=== PATIENT | male | born 1930 | race Caucasian/White ===

== ENCOUNTER 2016-10-21 11:27 | Emergency (ER) | payer OTHER ==
[2016-10-21 11:48] VITALS: TEMP 97.5
[2016-10-21] MEDS ORDERED: NS 1,000 ML IV ONE (12:34)
--- NOTE | 2016-10-21 13:12 | CPEKG ---
Heart Rate: 66 RR Interval: 909 P-R Interval: 176 QRSD Interval: 96 QT Interval: 400 QTC Interval: 420 P [place]: 32 QRS [place]: -12 T Wave [place]: 53 EKG Severity - BORDERLINE ECG - EKG Impression: SINUS RHYTHM EKG Impression: PROBABLE LEFT ATRIAL ABNORMALITY Electronically Signed By: Sherin Galeana 21-Oct-2016 20:53:09
--- NOTE | 2016-10-21 13:31 | EDPHY ---
H & P Time Seen by Provider: 10/21/16 13:17 HPI/ROS: CHIEF COMPLAINT: Dizzy spells HISTORY OF PRESENT ILLNESS: This patient is an 86 year old male complaining of intermittent episodes of being off-balance. He feels as if his back is rotating when he stands still, which affects his balance. He feels this sensation more when he bends over. Yesterday morning after waking, he stood up and felt as though he was losing his balance. He did not fall. He sat at the [id number] for about 5 hours the evening before, and is not sure if this might be related. He has still been able to drive. Today he continues to be lightheaded intermittently, using his cane to steady himself. He denies recent trauma. No chest pain, shortness of breath, abdominal pain, or other associated symptoms. He has no known history of vertigo. REVIEW OF SYSTEMS: Constitutional: No fever, no chills Eyes: No visual changes ENT: No sore throat Respiratory: No cough, no shortness of breath Cardiac: No chest pain Gastrointestinal: no vomiting, no abdominal pain Genitourinary: no dysuria Musculoskeletal: No leg pain or swelling Skin: No rash Neurological: No headache, no weakness Psychiatric: No depression Past Medical/Surgical History: 1. Hypertension 2. Coronary artery disease 3. Hypertension 4. 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 at bedside. Lives independently with his and dog. Nonsmoker Smoking Status: Never smoked Physical Exam: General Appearance: Alert, no distress Eyes: Horizontal nystagmus when turned towards the right. Pupils equal and round , no conjunctival pallor or injection ENT, Mouth: Left TM opaque. Right TM obscured by cerumen. Mucous membranes moist Neck: Normal inspection Respiratory: Rales at bases bilaterally. Cardiovascular: Regular rate and rhythm Gastrointestinal: Abdomen is soft and non- tender Neurological: Alert, oriented x3, cranial nerves II through XII intact, motor 5 /5, sensory intact to light touch, normal and steady gait Skin: Warm and dry, no rash Extremities: Nontender, no pedal edema Psychiatric: Mood and affect normal Constitutional: Initial Vital Signs Temperature (C) 36.4 C 10/21/16 11:44 Heart Rate 74 10/21/16 11:44 Respiratory Rate 18 10/21/16 11:44 Blood Pressure 147/100 H 10/21/16 11:44 O2 Sat (%) 95 10/21/16 11:44 O2 Delivery Mode Room Air Allergies/Adverse Reactions: Penicillins Allergy (Verified 10/21/16 11:43) Home Medications: Medication Instructions Recorded Ascorbic Acid [Vitamin C] 250 mg PO DAILY 08/27/14 Aspirin [Aspirin 81mg (OTC)] 81 mg PO DAILY 08/27/14 Atorvastatin Calcium [Lipitor] 20 mg PO DAILY 08/27/14 Cholecalciferol (Vitamin D3) 5,000 unit PO DAILY 08/27/14 [Vitamin D3] Herbals/Supplements -Info Only 1 ea PO DAILY 08/27/14 Ramipril [Altace 2.5mg (RX)] 2.5 mg PO DAILY 08/27/14 Vit C/Vit E/Lutein/Min/[place]-3 1 each PO DAILY 08/27/14 [Ocuvite Softgel] oxyCODONE IR [Oxycodone Ir (*)] 5 - 15 mg PO Q3 PRN #90 tab 09/18/14 traMADol [Ultram 50 mg (*)] 100 mg PO BID #70 tab 09/19/14 Meclizine HCl [Meclizine HCl 25 mg 25 mg PO TID PRN #15 tab 10/21/16 (RX,OTC)] Medical Decision Making - Diagnostics EKG Interpretation: EKG interpreted by me reveals normal sinus rhythm, rate 66, no ST/T changes. Interpretation: normal EKG ED Course/Re-evaluation: 86 year old male presents with vertigo. Symptomatology and physical exam consistent with peripheral etiology of vertigo. He has a normal neurologic exam and I do not suspect a central cause for his vertigo. Plan for labs including CBC, BMP, Troponin. Plan to administer 25mg PO Meclizine for symptom relief. Labs unremarkable. Troponin negative. EKG shows normal sinus rhythm without ischemic changes. Feels better after meclizine. Plan to discharge home in good condition with prescription for Meclizine. Follow up and return precautions discussed. The patient is comfortable with this plan. Differential Diagnosis: Differential diagnosis includes TIA, stroke, intracranial hemorrhage, tumor, electrolyte abnormality and acute labyrinthitis. - Data Points Laboratory Results: Laboratory Results 10/21/16 13:15 10/21/16 13:15 10/21/16 10/21/16 13:15 13:15 WBC 9.70 10^3/uL H 10^3/uL (3.80-9.50) RBC 5.55 10^6/uL 10^6/uL (4.40-6.38) Hgb 16.5 g/dL g/dL (13.7-17.5) Hct 49.6 % % (40.0-51.0) MCV 89.4 fL fL (81.5-99.8) MCH 29.7 pg pg (27.9-34.1) MCHC 33.3 g/dL g/dL (32.4-36.7) RDW 13.2 % % (11.5-15.2) Plt Count 224 10^3/uL 10^3/uL (150-400) MPV 10.6 fL fL (8.7-11.7) Neut % (Auto) 74.2 % % (39.3-74.2) Lymph % (Auto) 16.6 % % (15.0-45.0) [place] % (Auto) 7.5 % % (4.5-13.0) Eos % (Auto) 1.0 % % (0.6-7.6) Baso % (Auto) 0.3 % % (0.3-1.7) Nucleat RBC Rel Count 0.0 % % (0.0-0.2) Absolute Neuts (auto) 7.19 10^3/uL H 10^3/uL (1.70-6.50) Absolute Lymphs (auto) 1.61 10^3/uL 10^3/uL (1.00-3.00) Absolute Monos (auto) 0.73 10^3/uL 10^3/uL (0.30-0.80) Absolute Eos (auto) 0.10 10^3/uL 10^3/uL (0.03-0.40) Absolute Basos (auto) 0.03 10^3/uL 10^3/uL (0.02-0.10) Absolute Nucleated RBC 0.00 10^3/uL 10^3/uL (0-0.01) Immature Gran % 0.4 % % (0.0-1.1) Immature Gran # 0.04 10^3/uL 10^3/uL (0.00-0.10) Sodium 138 mEq/L mEq/L (134-144) Potassium 4.4 mEq/L mEq/L (3.5-5.2) Chloride 99 mEq/L mEq/L (97-110) Carbon Dioxide 26 mEq/l mEq/l (22-31) Anion Gap 13 mEq/L mEq/L (8-16) BUN 31 mg/dL H mg/dL (7-23) Creatinine 1.3 mg/dL mg/dL (0.7-1.3) Estimated GFR 52 Glucose 125 mg/dL H mg/dL (70-100) Calcium 10.1 mg/dL mg/dL (8.5-10.4) Troponin I < 0.012 ng/mL ng/mL (0-0.034) Medications Given: Discontinued Medications Sodium Chloride (Ns) 1,000 mls @ 0 mls/hr IV ONCE ONE; Wide Open PRN Reason: Protocol Stop: 10/21/16 12:35 Last Admin: 10/21/16 13:57 Dose: 1,000 mls Meclizine HCl (Meclizine Hcl) 25 mg PO EDNOW ONE Stop: 10/21/16 13:39 Last Admin: 10/21/16 13:57 Dose: 25 mg Departure - Departure Disposition: Home, Routine, Self-Care Clinical Impression: Vertigo Condition: Good Instructions: Vertigo (ED) Additional Instructions: 1. Take Meclizine as prescribed for relief of your symptoms. 2. Follow up with an Ear, Nose, and Throat specialist for continue management of your vertigo. 3. Return to the Emergency Department if you develop chest pain, shortness of breath, uncontrollable dizziness, severe headache, numbness or weakness, or other worsening of condition. 4. Remember to move slowly and carefully to avoid falling, especially when you are feeling off-balance Referrals: Mary Botello MD [Primary Care Provider] - As per Instructions Allysno Majano PA [Physician [employer] Helper] - As per Instructions Prescriptions: Meclizine HCl [Meclizine HCl 25 mg (RX,OTC)] 25 mg PO TID PRN #15 tab PRN Reason: Dizziness Report Scribed for: Sherin Galeana Report Scribed by: Rosana Wright Date of Report: 10/21/16 Time of Report: 13:32 Physician Review and Approval Statement: 10/21/16 13:32 Portions of this note were transcribed by a medical dir. I personally performed a history, physical exam, medical decision making, and confirmed accuracy of information the transcribed note.
[2016-10-21 13:32] LABS: % IMMATURE GRANULYOCYTES 0.4 % (0.0-1.1); ABSOLUTE IMMATURE GRANULOCYTES 0.04 10^3/uL (0.00-0.10); ADD DIFF? NO; ADD MORPH? NO; ADD SCAN? NO; ATYPICAL LYMPHOCYTE FLAG 0 (0-99); FRAGMENT RBC FLAG 0 (0-99); HEMATOCRIT 49.6 % (40.0-51.0); HEMOGLOBIN 16.5 g/dL (13.7-17.5); LEFT SHIFT FLG 0 (0-99); LIPEMIA HEMOLYSIS FLAG 80 (0-99); MEAN CELL HEMOGLOBIN 29.7 pg (27.9-34.1); MEAN CELL HEMOGLOBIN CONCENTR. 33.3 g/dL (32.4-36.7); MEAN CELL VOLUME 89.4 fL (81.5-99.8); MEAN PLATELET VOLUME 10.6 fL (8.7-11.7); PLATELET CLUMPS FLAG 20 (0-99); PLATELET COUNT 224 10^3/uL (150-400); RED BLOOD CELL COUNT 5.55 10^6/uL (4.40-6.38); RED CELL DISTRIBUTION WIDTH 13.2 % (11.5-15.2)
[2016-10-21] MEDS ORDERED: MECLIZINE HCL 25 MG TAB PO ONE (13:38)
[2016-10-21 13:40] LABS: ANION GAP 13 mEq/L (8-16); CALCIUM 10.1 mg/dL (8.5-10.4); CARBON DIOXIDE 26 mEq/l (22-31); CHLORIDE 99 mEq/L (97-110); CREATININE 1.3 mg/dL (0.7-1.3); GLOMERULAR FILTRATION RATE 52; GLUCOSE 125 mg/dL (70-100); POTASSIUM 4.4 mEq/L (3.5-5.2); SODIUM 138 mEq/L (134-144)
[2016-10-21 13:51] LABS: TROPONIN I < 0.012 ng/mL (0-0.034)
[2016-10-21 14:23] VITALS: BP 158/81; PULSE 60; RESP 16; O2SAT 93
== END 2016-10-21 14:19 | disposition home or self-care (01) ==
DX: R42 Dizziness and giddiness (principal); I10 Essential (primary) hypertension; I25.10 Atherosclerotic heart disease of native coronary artery without angina pectoris; E86.9 Volume depletion, unspecified; Z79.82 Long term (current) use of aspirin; Z85.828 Personal history of other malignant neoplasm of skin